=== PATIENT | female | born 1980 | race Caucasian/White ===

== ENCOUNTER → 2016-08-23 | Outpatient (CLI) | payer OTHER ==
--- NOTE | 2016-08-23 18:48 | US ---
Dear Dr. Donald, Thank you for sending your patient, Basilia Don, to us for an US and consultation to assess anatomy. As you know, the patient is a 35 y.o. G3, P2002 at 20 weeks and 2 days with an EDC of 7 based on an 8 week US. Her has been uncomplicated to date. Genetic Screening: Declined The patient denies any uterine contractions, vaginal bleeding, or loss of fluid. Today, she is withou t complaints. US FINDINGS: Number of fetuses: 1 Placental location: Fundal, No previa Placental Cord Insertion: Central presentation: Variable Cervix: 4.0 cm, transabdominally MVP: 3.9 cm The adnexa were evaluated. No pathology was seen. Right ovary: Normal Left ovary: Suboptimal heart rate: 139 bpm Measurements: Biparietal diameter: 47 mm, 20 weeks 2 days Head circumference: 177 mm, 20 weeks 2 days Abdominal circumference: 161 mm, 21 weeks 2 days Femur length: 32 mm, 19 weeks 6 days Humerus length: 31 mm, 20 weeks 3 days Transcerebellar diameter: 21 mm, 20 weeks 1 days Average ultrasound age: 20 weeks 3 days Estimated weight: 358 g weight percentile: 58% ANATOMY Supratentorial brain: Normal Cerebral lateral ventricle: 6 mm Posterior fossa: Normal Cisterna magna: 4 mm Nuchal fold: 4.9 Lip: Normal Profile: Normal Alveolar Ridge: Appears intact Spine: -- Cervical: Normal -- Thoracic: Normal -- Lumbar: Normal -- Sacral: Normal Heart: -- 4 Chamber: Normal -- Intraventricular septum: Appears intact by Color and Spectral US -- Right Outflow Tract: Normal -- Left Outflow Tract: Normal -- 3 Vessel View: Normal Diaphragm: Appears intact Stomach: Normal Abdominal Umbilical Cord Insertion: Normal Right kidney: Normal Left kidney: Normal Bladder: Normal Number of cord vessels: 3 Upper extremities: -- Right Arm: Normal -- Right Hand: Normal -- Left Arm: Normal -- Left Hand: Normal Lower extremities: -- Right Leg: Normal -- Right Foot: Normal, no club foot -- Left Leg: Normal -- Left Foot: Normal, no club foot IMPRESSION: 1. Anatomy: The fetus measures appropriate for gestational age, measuring a normal weight and percen tile. Visualization of the fetus today reveals no overt structural anomalies. There is evidence of no rmal amniotic fluid, and movement was seen during the examination. 2. Genetic Screening: This patient has declined genetic screening in this . Today, no marker s of aneuploidy were seen. While her US results are reassuring, we reviewed that US alone can m iss cases of aneuploidy, in particular Trisomy 21. We also reviewed that aneuploidy can o nly be definitively excluded with diagnostic testing via amniocentesis. After this discussion, the constantine wolff does not wish to proceed with further genetic screening or invasive testing at this time. Thank you again for sending this patient to see us today. Please feel free to contact me with any questions at . Mindy Gallo MD Maternal- Medicine
--- NOTE | 2016-08-24 15:57 | US ---
Ultrasound Obstetric Detailed Evaluation Indication: Growth and anatomy. The estimated gestational age by LMP is 20 weeks and 2 days yieldin g an EDC of January 08, 2017. Comparison: None. Findings: Number: 1 Presentation: Variable Placental Location: Fundal without previa Cervix: 4.0 MVP: 3.9 cm Heart Rate: 139 bpm. Right ovary measures 2.8 x 2.2 x 2.1 cm. Left ovary not visualized. Biometry: Biparietal Diameter: 47.12 mm 20 weeks, 2 days Head Circumference: 177.10 mm 20 weeks, 2 days Abdominal Circumference: 160.91 mm 21 weeks, 2 days Femur Length: 31.50 mm 19 weeks, 6 days Humerus Length: 31.04 mm 20 weeks, 3 days Transcerebellar Diameter: 21.25 mm 20 weeks, 1 days HC/AC: 1.10 (1.09 - 1.26) FL/BPD: 67% FL/AC: 20% Average Ultrasound Age: 20 weeks, 3 days EDC Based on Today's Average Ultrasound Age: January 07, 2017 Estimated weight is 358 gms +/- 52 gms. The estimated weight is at the 58 % based on previous dating. ANATOMY SURVEY: Supratentorial Brain: Normal Posterior Fossa: Normal Spine: Normal Nuchal fold: Normal Nose and Lips: Normal Facial Profile: Normal Heart: Four chamber heart. 139 bpm. Intact intraventricular septum. Cardiac Outflow Tracts: Normal Stomach: Normal Umbilical Cord Insertion: Normal Kidneys: Normal, no pyelectasis Bladder: Normal Number of Cord Vessels: Three Upper Extremities: Visualized Lower Extremities: Visualized. Impression: 1. Living melissa in variable presentation. 2. Size concordant with dates. 3. No overt anomalies detected. 4. Please see Dr. Mindy Gallo's consult and recommendations.
== END ==
LOC: FIMAGING 08:33
PROVIDERS: ATTEND Obstetrics & Gynecology
DX: Z34.82 Encounter for supervision of other normal pregnancy, second trimester (principal); Z3A.20 20 weeks gestation of pregnancy

== ENCOUNTER 2016-12-24 23:30 | Inpatient (IN) | payer OTHER ==
[2016-12-24] MEDS ORDERED: TERBUTALINE SULFATE 1 MG/ML VIAL IV PRN (23:43)
[2016-12-24] MEDS ORDERED: EPSOM SALT 454 GM TP PRN (23:43)
[2016-12-24] MEDS ORDERED: LR 1,000 ML IV PRN (23:43)
[2016-12-24] MEDS ORDERED: OXYTOCIN/RINGERS LACTATE 1,000 ML IV PRN (23:43)
[2016-12-24] MEDS ORDERED: OLIVE OIL 118 ML BTL MISC PRN (23:43)
[2016-12-24] MEDS ORDERED: LIDOCAINE 1% 2 ML INJ ONE (23:46)
[2016-12-24] MEDS ORDERED: OXYTOCIN 10 UNIT/ML VIAL ONE (23:46)
[2016-12-24] MEDS ORDERED: TERBUTALINE SULFATE 1 MG/ML VIAL ONE (23:46)
[2016-12-24] MEDS ORDERED: OLIVE OIL 118 ML BTL ONE (23:48)
[2016-12-24] MEDS ORDERED: LIDOCAINE 1% 300 MG/30 ML SDV ONE (23:48)
[2016-12-24] MEDS ORDERED: AMMONIA AROMATIC 1 EACH AMP IH ONE (23:48)
[2016-12-24] MEDS ORDERED: MISOPROSTOL 200 MCG TAB ONE (23:49)
[2016-12-24] MEDS ORDERED: OXYTOCIN/RINGERS LACTATE 20 UNIT/1,000 ML BAG IV ONE (23:49)
[2016-12-25 00:04] LABS: ADD DIFF? YES; ADD MORPH? NO; ADD SCAN? NO; ATYPICAL LYMPHOCYTE FLAG 10 (0-99); FRAGMENT RBC FLAG 10 (0-99); HEMATOCRIT 43.4 % (38.0-47.0); HEMOGLOBIN 15.4 g/dL (12.6-16.3); LEFT SHIFT FLG 20 (0-99); LIPEMIA HEMOLYSIS FLAG 90 (0-99); MEAN CELL HEMOGLOBIN CONCENTR. 35.5 g/dL (32.4-36.7); MEAN CELL VOLUME 90.2 fL (81.5-99.8); MEAN PLATELET VOLUME 10.9 fL (8.7-11.7); PLATELET CLUMPS FLAG 10 (0-99); PLATELET COUNT 145 10^3/uL (150-400); RED BLOOD CELL COUNT 4.81 10^6/uL (4.18-5.33); RED CELL DISTRIBUTION WIDTH 13.2 % (11.5-15.2)
[2016-12-25 00:40] LABS: MACROCYTES 1+; PLATELET ESTIMATE DECREASED (ADEQ)
[2016-12-25] MEDS ORDERED: ACETAMINOPHEN 325 MG TAB PO PRN (00:48)
[2016-12-25] MEDS ORDERED: HYDROCORTISONE 0.5% CREAM TP PRN (00:48)
[2016-12-25] MEDS ORDERED: SIMETHICONE 80 MG TAB CHEW PO PRN (00:48)
--- NOTE | 2016-12-25 00:56 | OBPROC ---
- Labor and Delivery Onset of Contractions Date: 12/24/16 Onset of Contractions Time: 10:30 Onset of Contractions Type: Spontaneous Rupture of Membranes Date: 12/25/16 Rupture of Membranes Type: Artificial Amniotic Fluid Color: Clear Delivery Type: Spontaneous EBL: 200 Complications: None - Medications Labor Augmentation/Induction Meds Used: None - Info Infant A Delivery Date: 12/25/16 Delivery Time: 12:27 Sex of : Male Score (1 Min): 8 Score (5 Min): 9
[2016-12-25] MEDS ORDERED: OXYTOCIN/RINGERS LACTATE 1,000 ML IV SCH (01:00)
[2016-12-25] MEDS: IBUPROFEN 600 MG TAB PO PRN ×4 (01:03→20:57)
--- NOTE | 2016-12-25 03:35 | GHP ---
[f rep st] HISTORY AND PHYSICAL DATE OF ADMISSION: 12/24/2016 CHIEF COMPLAINT: Uterine contractions. HISTORY OF PRESENT ILLNESS: The patient is a 36-year-old, 3, para 2-0-0 -2, at 37 weeks 6 days who called with a complaint of contractions every 5 minutes, lasting 1 hour. She was advised to present to the hospital for admission. At the time of presentation she was continuing to have regular painful contractions. She denied any loss of fluid or vaginal bleeding. She had good movement. Her was uncomplicated. She had declined genetic screening. She had a history of 2 prior vaginal deliveries in 2011 and in 2013. She received the Tdap vaccine at the appropriate time during . REVIEW OF SYSTEMS: Negative apart from HPI. PAST MEDICAL HISTORY: Noncontributory. PAST SURGICAL HISTORY: Noncontributory. MEDICATIONS: vitamins. ALLERGIES: None. SOCIAL HISTORY: She is a pzsd-bi-nuja mom. She has 2 daughters. She is to her Suresh. LABS: Notable for blood type O positive, antibody screen negative. Initial hematocrit of 45.4. Varicella immune, rubella immune, RPR nonreactive. Urine culture negative. Hep B surface antigen negative. HIV negative. Gonorrhea, chlamydia negative. Her 1 hour Glucola was elevated, but was followed by a normal 3 hour Glucola. She declined genetic screening and had a normal anatomy ultrasound. PHYSICAL EXAMINATION: VITAL SIGNS: Within normal limits (see [facility]). GENERAL: Awake, alert, in no acute distress apart from mild to moderate distress during contractions. Respirations unlabored. CARDIOVASCULAR: Regular rate and rhythm. ABDOMEN: Gravid, soft, nontender. EFW: 6.5 pounds by Harpal's. Vertex presentation, confirmed on ultrasound. EXTREMITIES: No edema. STERILE VAGINAL EXAM: 9 cm dilated, 100% effaced, -1 station, intact membranes. heart rate tracing baseline 110, moderate variability, positive accelerations, no decelerations. Tocometer: Regular contractions every 2-3 minutes. Labs pending. ASSESSMENT AND PLAN: The patient is a 36-year-old, 3, para 2-0-0-2, at 37 weeks 6 days in active labor. She is GBS negative. She desires unmedicated delivery. Will admit to Labor and Delivery for active labor. She is requesting IV fluids and AROM. We will perform these at her request and then proceed with expected vaginal delivery. status reassuring. /[id number]/MODL MTDD
[2016-12-25] MEDS: DOCUSATE SODIUM 100 MG CAP PO PRN ×2 (13:25→20:58)
[2016-12-25 17:11] VITALS: RESP 16
[2016-12-25 21:40] VITALS: O2SAT 94
[2016-12-26] MEDS: IBUPROFEN 600 MG TAB PO PRN ×3 (02:53→18:00)
--- NOTE | 2016-12-26 10:43 | OBPROG ---
OBG Progress Note Assessment/Plan: Assessment: Pt is a 36 y/o female PPD#1 s/p - doing well Plan: 1) Continue routine PP care 2) O+/RI 3) Dispo - discharge home tomorrow since baby is still requiring bili lights. Plan f/u in 6 wks. 12/26/16 10:43 Subjective: Pt feeling great, no complaints, lochia diminishing, breast feeding progressing. Objective: 12/24/16 23:54 Patient ABO/Rh O POSITIVE 12/24/16 23:54 Temp Pulse Resp BP Pulse Ox 36.6 C 71 16 103/69 94 12/25/16 20:00 12/25/16 20:00 12/25/16 20:00 12/25/16 20:00 12/25/16 20:00 Uterine Position/Fundal Height: Umbilicus -1 Uterine Tone: Firm ICD10 Worksheet Patient Problems: Problems Problem Status Onset Spontaneous vaginal delivery Acute Uterine contractions Acute
[2016-12-26 20:05] VITALS: PULSE 78
[2016-12-27] MEDS: IBUPROFEN 600 MG TAB PO PRN ×2 (00:09→05:55)
--- NOTE | 2016-12-27 08:43 | OBGCSDC ---
General Delivery Information - General Info : 3 Para: 3 Delivery Physician/CNM: Claudia Bryant Admission Date: 12/24/16 Labs: Patient ABO/Rh O POSITIVE 12/24/16 23:54 Hct 43.4 % (38.0-47.0) 12/24/16 23:54 Vaginal - Diagnosis IUP (Weeks): 38 Labor: Spontaneous Rupture of Membranes Type: Artificial Amniotic Fluid Color: Clear Complications: None - Operations/Procedures Delivery Type: Spontaneous Procedures: Amniotomy - Delivery EBL: 200 Discharge Information - Discharge Information Discharge Medications: Ibuprofen, Vitamins Complications: none Condition: Good Instruction/Follow Up: Six Weeks Discharge Physician/CNM: Debbi Dejesus Discharge Date: 12/27/16 Dictated: No
[2016-12-27 09:54] VITALS: BP 99/72; TEMP 97.9
== END 2016-12-27 13:35 | disposition home or self-care (01) | DRG 775 ==
LOC: FLD 23:30 → OBSVTOIN 23:43 → FOB 12-25 02:44
PROVIDERS: ADMIT Obstetrics & Gynecology; ATTEND Obstetrics & Gynecology
PROC: 10907ZC Drainage of Amniotic Fluid, Therapeutic from Products of Conception, Via Natural or Artificial Opening (ICD-10-PCS; principal; 2016-12-25)
PROC: 10E0XZZ Delivery of Products of Conception, External Approach (ICD-10-PCS; principal; 2016-12-25)
DX: O80 Encounter for full-term uncomplicated delivery (principal); Z3A.37 37 weeks gestation of pregnancy; Z37.0 Single live birth
CPT/HCPCS: J2590; J3105